=== PATIENT | female | born 1990 | race American Indian/Alaskan Native ===

== ENCOUNTER 2019-01-17 16:58 | Emergency (ER) | payer MEDICAID ==
[2019-01-17] MEDS ORDERED: DUONEB *Not for PRN Use IH ONE ×2 (17:22→19:52)
[2019-01-17] MEDS ORDERED: SOLU-Medrol IM ONE (17:23)
--- NOTE | 2019-01-17 17:23 | Emergency Department Report ---
Blank Doc - Documentation Documentation: 28 y o female hx of asthma presents with flare up that started last night, out of meds resp tx ordered xr
--- NOTE | 2019-01-17 18:11 | XRay Report ---
PROCEDURE: XR CHEST ROUTINE 2V TECHNIQUE: PA and lateral views of the chest were obtained. HISTORY: cough COMPARISONS: FINDINGS: Heart size and pulmonary vasculature appear normal. No evidence of pulmonary edema or pleural effusio n. No acute infiltrates masses or pneumothorax visualized. No acute bone abnormalities are identified . IMPRESSION: No acute abnormalities are seen.. This document is electronically signed by Moustapha Izquierdo MD., January 17 2019 06:09:16 PM ET
[2019-01-17] MEDS ORDERED: IBUPROFEN PO ONE (19:16)
[2019-01-17] MEDS ORDERED: DECADRON IM ONE (19:16)
--- NOTE | 2019-01-17 19:31 | Emergency Department Report ---
ED Asthma HPI - General Chief Complaint: Adult Asthma Stated Complaint: TIGHTNESS IN CHEST/TEO Time Seen by Provider: 01/17/19 17:20 Source: patient Mode of arrival: Ambulatory Limitations: No Limitations - History of Present Illness Initial Comments: pt is a 28 y/o aaf wih hx of asthma who presents for asthma exacerbation states out of medications x 1 months, usual medications are Albuterol and Advair pt requesting referral to new pcp due to change in insurance. Current symptoms include sob wheezing, cough productive green noc fever no cp no n/v no dizziness no lightheadedness. symptoms exacerbated by environmental exposure, symptoms improved by nothing. MD Complaint: "asthma attack", wheezing Onset/Timin -: days(s) Asthma History: childhood onset Severity: moderate Context: recent URI, ran out of meds Associated Symptoms: productive cough, fever Treatments Prior to Arrival: other (none ) - Related Data Current Asthma Therapy: inhaled bronchodilator Previous Rx's Medication Instructions Recorded Last Taken Type ALBUTEROL Inhaler(NF) [VENTOLIN 2 puff IH Q4H PRN #1 inha 01/17/19 Unknown Rx Inhaler(NF)] Benzonatate [Tessalon Perles] 100 mg PO Q8HR PRN #30 capsule 01/17/19 Unknown Rx Fluticasone/Salmeterol (Nf) 2 puff INHALATION BID #1 blst.w.dev 01/17/19 Unknown Rx [Advair 250-50 Diskus (Nf)] Ibuprofen 800 mg PO TID PRN #30 tablet 01/17/19 Unknown Rx predniSONE [Deltasone] 40 mg PO QDAY 5 Days #10 tab 01/17/19 Unknown Rx Allergies Allergy/AdvReac Type Severity Reaction Status Date / Time No Known Allergies Allergy Unverified 01/17/19 17:05 ED Review of Systems ROS: Stated complaint: TIGHTNESS IN CHEST/TEO Other details as noted in HPI Constitutional: fever. denies: chills Eyes: denies: eye pain, eye discharge, vision change ENT: congestion. denies: ear pain, throat pain Respiratory: cough, shortness of breath, wheezing Cardiovascular: denies: chest pain, palpitations Endocrine: no symptoms reported Gastrointestinal: denies: abdominal pain, nausea, diarrhea Genitourinary: denies: urgency, dysuria, discharge Musculoskeletal: denies: back pain, joint swelling, arthralgia Skin: denies: rash, lesions Neurological: denies: headache, weakness, paresthesias Psychiatric: denies: anxiety, depression Hematological/Lymphatic: denies: easy bleeding, easy bruising ED Past Medical Hx - Past Medical History Hx Asthma: Yes - Surgical History Past Surgical History?: No - Social History Smoking Status: Never Smoker Substance Use Type: None - Medications Home Medications: Home Medications Medication Instructions Recorded Confirmed Last Taken Type ALBUTEROL Inhaler(NF) [VENTOLIN 2 puff IH Q4H PRN #1 inha 01/17/19 Unknown Rx Inhaler(NF)] Benzonatate [Tessalon Perles] 100 mg PO Q8HR PRN #30 capsule 01/17/19 Unknown Rx Fluticasone/Salmeterol (Nf) 2 puff INHALATION BID #1 blst.w.dev 01/17/19 Unknown Rx [Advair 250-50 Diskus (Nf)] Ibuprofen 800 mg PO TID PRN #30 tablet 01/17/19 Unknown Rx predniSONE [Deltasone] 40 mg PO QDAY 5 Days #10 tab 01/17/19 Unknown Rx ED Physical Exam - General Limitations: No Limitations General appearance: alert, in no apparent distress - Head Head exam: Present: normocephalic, normal inspection - Eye Eye exam: Present: normal appearance, PERRL, EOMI Pupils: Present: normal accommodation - ENT ENT exam: Present: mucous membranes moist, TM's normal bilaterally, normal external ear exam - Expanded ENT Exam Expanded Ear exam: Present: normal external inspection Throat exam: Positive: tonsillar erythema, tonsillomegaly. Negative: tonsillar exudate, R peritonsillar mass, L peritonsillar mass, other (uvula midline no stridor no exudated no lesions ) - Neck Neck exam: Present: normal inspection, full ROM. Absent: lymphadenopathy - Respiratory Respiratory exam: Present: wheezes, chest wall tenderness (right lateral ). Absent: stridor - Cardiovascular Cardiovascular Exam: Present: regular rate, normal rhythm, normal heart sounds. Absent: systolic murmur, diastolic murmur, rubs, gallop - GI/Abdominal GI/Abdominal exam: Present: soft, normal bowel sounds. Absent: tenderness, rebound, bruit, hernia - Rectal Rectal exam: Present: deferred - Extremities Exam Extremities exam: Present: normal inspection, full ROM, normal capillary refill - Back Exam Back exam: Present: normal inspection, full ROM. Absent: tenderness, CVA tenderness (R), CVA tenderness (L), rash noted - Neurological Exam Neurological exam: Present: alert, oriented X3, CN II-XII intact, normal gait, reflexes normal - Psychiatric Psychiatric exam: Present: normal affect, normal mood - Skin Skin exam: Present: warm, dry, intact, normal color. Absent: rash ED Course Vital Signs 01/17/19 17:09 Temperature 99.3 F Pulse Rate 107 H Respiratory 20 Rate Blood Pressure 168/92 O2 Sat by Pulse 97 Oximetry ED Medical Decision Making - Radiology Data Radiology results: report reviewed, image reviewed Ordering Physician: JORGE DANIEL Date of Service: 01/17/19 Procedure(s): XR chest routine 2V Accession Number(s): [id number] cc: JORGE DANIEL Fluoro Time In Minutes: PROCEDURE: XR CHEST ROUTINE 2V TECHNIQUE: PA and lateral views of the chest were obtained. HISTORY: cough COMPARISONS: FINDINGS: Heart size and pulmonary vasculature appear normal. No evidence of pulmonary edema or pleural effusion. No acute infiltrates masses or pneumothorax visualized. No acute bone abnormalities are identified. IMPRESSION: No acute abnormalities are seen.. This document is electronically signed by Moustapha Izquierdo MD., January 17 2019 06:09:16 PM ET Transcribed By: DFN Dictated By: MOUSTAPHA IZQUIERDO MD Electronically Authenticated By: MOUSTAPHA IZQUIERDO MD Signed Date/Time: 01/17/191810 DD/ 55 TD/TT: 01/17/191755 - Medical Decision Making Symptoms improved treatment in the ED patient is a letter from room to my anxiety ED and returned around without increased shortness of breath or wheezing plan DC to home peripheral albuterol refill Advair prednisone CPAP ibuprofen Valdemar Villalta follow with PCP referral to [facility] for follow-up in 2 days will return immediately should symptoms worsen. pt dc'd in stable condition at this time. Critical care attestation.: If time is entered above; I have spent that time in minutes in the direct care of this critically ill patient, excluding procedure time. ED Disposition Clinical Impression: Asthma Qualifiers: Asthma severity: moderate Asthma persistence: unspecified Asthma complication type: unspecified Qualified Code(s): J45.909 - Unspecified asthma, uncomplicated Disposition: DC- TO HOME OR SELFCARE Is pt being admited?: No Does the pt Need Aspirin: No (was. No coags [facility] home meds temperature is) Condition: Stable Instructions: Asthma (ED) Prescriptions: Fluticasone/Salmeterol (Nf) [Advair 250-50 Diskus (Nf)] 2 puff INHALATION BID #1 blst.w.dev predniSONE [Deltasone] 40 mg PO QDAY 5 Days #10 tab Ibuprofen 800 mg PO TID PRN #30 tablet PRN Reason: Pain , Severe (7-10) Benzonatate [Tessalon Perles] 100 mg PO Q8HR PRN #30 capsule PRN Reason: Cough ALBUTEROL Inhaler(NF) [VENTOLIN Inhaler(NF)] 2 puff IH Q4H PRN #1 inha PRN Reason: wheezing shortness of breath Referrals: PRIMARY CARE, [Primary Care Provider] - 3-5 Days [facility] [Outside] - 3-5 Days Forms: Work/School Release Form(ED) Time of Disposition: 21:23
[2019-01-17] MEDS ORDERED: PROVENTIL IH ONE (20:53)
[2019-01-17] MEDS ORDERED: ZITHROMAX PO ONE (20:53)
[2019-01-17 21:53] VITALS: BP 132/84
== END 2019-01-17 21:30 | disposition home or self-care (01) ==
LOC: ED 16:58
DX: J45.909 Unspecified asthma, uncomplicated (principal)
CPT/HCPCS: 71046; 94640; 96372; 99283; J1100